=== PATIENT | female | born 1950 | race Caucasian/White ===

== ENCOUNTER → 2020-05-02 | Outpatient (CLI) | payer OTHER, MEDICAID ==
[~2020-05-02] VITALS: Ht 165.1 cm; Wt 104.3 kg
[~2020-05-02] MED LIST: ATEN-60; ATOR20TA50 PO; BUSP5TAB22; ESTR0.1C5 VA; FLUO-125 PO; GABA-339 PO; HYDR-531 PO; IBU600T; LEVO25TA6 PO; LEVO50CA2; LISI-646 PO; LISI40TA11; LITH300T; LOPE2CAP PO; METF-370 PO; METR500T PO; NIFE1TAB31 PO; OME20GT; OMEP20TA PO; OXYB5TAB24; OXYB5TAB61 PO; PROZAC; QUET100T46 PO; TRAM50TA2 PO; [UNRECOGNIZED DRUG - CODE]
== END | disposition home or self-care (01) ==
LOC: SUR 08:48 → EDSTATUS 05-08 12:15
PROVIDERS: ATTEND Urology
DX: Z01.818 Encounter for other preprocedural examination (principal); N39.46 Mixed incontinence; E11.9 Type 2 diabetes mellitus without complications; F41.9 Anxiety disorder, unspecified; F32.9 Major depressive disorder, single episode, unspecified; Z88.2 Allergy status to sulfonamides; Z79.899 Other long term (current) drug therapy; Z20.828 Contact with and (suspected) exposure to other viral communicable diseases; Z98.890 Other specified postprocedural states; Z90.49 Acquired absence of other specified parts of digestive tract; Z68.38 Body mass index [BMI] 38.0-38.9, adult; Z90.710 Acquired absence of both cervix and uterus

== ENCOUNTER → 2020-11-20 | Day surgery (SDC) | payer OTHER, MEDICAID ==
[~2020-11-20] VITALS: Ht 165.1 cm; Wt 99.8 kg
[~2020-11-20] MED LIST changes: -ATEN-60; -BUSP5TAB22; +FAMO-12 PO; -IBU600T; -LEVO50CA2; -LISI-646 PO; -LISI40TA11; -LITH300T; +LOSA-69 PO; -METR500T PO; -OME20GT; -OMEP20TA PO; +ONABOTULINUMTOXINA 200 UNIT INJ IJ ONE; -OXYB5TAB24; +PANT40TA2 PO; -PROZAC; -[UNRECOGNIZED DRUG - CODE]
== END | disposition home or self-care (01) ==
LOC: SUR 08:57
PROVIDERS: ATTEND Urology
DX: N39.46 Mixed incontinence (principal); E66.9 Obesity, unspecified; E11.9 Type 2 diabetes mellitus without complications; F31.89 Other bipolar disorder; F41.9 Anxiety disorder, unspecified; F99 Mental disorder, not otherwise specified; Z98.890 Other specified postprocedural states; Z79.899 Other long term (current) drug therapy; Z20.822 Contact with and (suspected) exposure to COVID-19; Z68.36 Body mass index [BMI] 36.0-36.9, adult; Z90.710 Acquired absence of both cervix and uterus; Z90.49 Acquired absence of other specified parts of digestive tract
CPT/HCPCS: 36415; U0003

== ENCOUNTER 2021-02-19 11:03 | Emergency (ER) | payer OTHER, MEDICAID ==
[~2021-02-19] VITALS: Ht 165.1 cm; Wt 97.5 kg
[~2021-02-19 11:03] MED LIST changes: -ESTR0.1C5 VA; -FAMO-12 PO; +FLUT110A IN; -HYDR-531 PO; +OMEP20TA PO; -ONABOTULINUMTOXINA 200 UNIT INJ IJ ONE; -PANT40TA2 PO; -TRAM50TA2 PO; +[UNRECOGNIZED DRUG - CODE] PO
[2021-02-19] MEDS ORDERED: HYDROmorphone HCL 2 MG/ML VL IV ONE (11:15)
[2021-02-19] MEDS ORDERED: ONDANSETRON HCL 4 MG/2 ML VIAL IV ONE (11:15)
[2021-02-19] MEDS ORDERED: SODIUM CHLORIDE 0.9% 500 ML IV ONE (11:15)
[2021-02-19 11:31] LABS: Basophils # (auto) 0.1 10 ^3/uL (0-0.2); Basophils % (auto) 0.9 % (0.0-2.0); Eosinophils # (auto) 0.2 10 ^3/uL (0-0.8); Eosinophils % (auto) 2.5 % (0.0-7.0); Hematocrit 36.7 % (36.0-46.0); Hemoglobin 11.8 g/dL (12.2-16.2); Lymphocytes # (auto) 2.3 10 ^3/uL (0.4-5.4); Lymphocytes % (auto) 30.1 % (10.0-50.0); Mean Corpuscular Hgb Conc. 32.2 g/dL (32.0-36.0); Mean Corpuscular Volume 83.8 fL (80.0-100.0); Monocytes # (auto) 0.6 10 ^3/uL (0-1.3); Monocytes % (auto) 8.2 % (0.0-12.0); Neutrophils # (auto) 4.5 10 ^3/uL (1.6-8.6); Neutrophils % (auto) 58.3 % (37.0-80.0); Red Blood Cells 4.38 10^6/uL (4.0-5.20); White Blood Cell 7.7 10^3/uL (4.4-10.8)
[2021-02-19 11:52] LABS: Chloride 112 mmol/L (98-107); Potassium 4.3 mmol/L (3.5-5.1); Sodium 141 mmol/L (136-145)
[2021-02-19 12:16] LABS: Alanine Aminotransferase 28 U/L (13-56); Albumin 3.8 g/dL (3.4-5.0); Alkaline Phosphatase 111 U/L (45-117); Anion Gap 4 (5-15); Aspartate Aminotransferase 19 U/L (15-37); BUN/Creatinine Ratio 13.1; Bilirubin, Total 0.6 mg/dL (0.2-1.0); Blood Urea Nitrogen 13 mg/dL (7-18); Carbon Dioxide 25 mmol/L (21-32); GFR African American 72 mL/min; GFR Non-African American 59 mL/min; Glucose 104 mg/dL (74-106); Magnesium 2.1 mg/dL (1.6-2.6); Total Protein 7.7 g/dL (6.4-8.2)
[2021-02-19 12:32] VITALS: BP 126/75
[2021-02-19 15:01] LABS: Urine Bacteria MANY /hpf (None Seen); Urine Blood Negative /uL (Negative); Urine Specific Gravity 1.015 (1.001-1.035); Urine WBC 15 /hpf (0 - 5)
== END 2021-02-19 15:25 | disposition home or self-care (01) ==
LOC: ER 11:03
DX: R53.1 Weakness (principal); I11.0 Hypertensive heart disease with heart failure; I50.9 Heart failure, unspecified; E78.5 Hyperlipidemia, unspecified; Z90.49 Acquired absence of other specified parts of digestive tract; Z90.710 Acquired absence of both cervix and uterus; Z79.899 Other long term (current) drug therapy; Z85.528 Personal history of other malignant neoplasm of kidney
CPT/HCPCS: 36415; 80053; 81001; 83735; 83880; 84484; 85025; 93005; 96360

== ENCOUNTER 2023-02-17 07:23 | Day surgery (SDC) | payer OTHER ==
[~2023-02-17] VITALS: Ht 165.1 cm; Wt 104.3 kg
[~2023-02-17 07:23] MED LIST changes: -LOSA-69 PO; +LOSA50TA46 PO; +OXYB5TAB10 PO; -OXYB5TAB61 PO; -QUET100T46 PO; +QUET100T47 PO
[2023-02-17] MEDS ORDERED: CIPROFLOXACIN 400MG/200ML 200 ML IV ONE (07:31)
[2023-02-17] MEDS ORDERED: ONABOTULINUMTOXINA 200 UNIT INJ IM ONE (08:45)
[2023-02-17] MEDS ORDERED: fentaNYL CITRATE 100 MCG/2 ML VL ONE (09:40)
[2023-02-17] MEDS ORDERED: MIDAZOLAM HCL 2MG/2ML 2ml VIAL (1mg/ml) ONE (09:40)
[2023-02-17] MEDS ORDERED: PROPOFOL 10 MG/ML 20 ML IV ONE (10:13)
[2023-02-17] MEDS ORDERED: ONDANSETRON HCL 4 MG/2 ML VIAL ONE (10:14)
[2023-02-17] MEDS ORDERED: LIDOCAINE 2% (LOCAL ANESTH.) PF 5ml SDV ONE (10:14)
[2023-02-17 10:25] VITALS: TEMP 97.4; O2SAT 95
[2023-02-17] MEDS ORDERED: SUCCINYLCHOLINE CHLORIDE 20 MG/ML 10ML VIAL IV ONE (10:56)
[2023-02-17] MEDS ORDERED: ONDANSETRON HCL 4 MG/2 ML VIAL IV PRN (11:00)
[2023-02-17] MEDS ORDERED: HYDROmorphone HCL 2 MG/ML VL/or syr IV PRN (11:00)
[2023-02-17 11:40] VITALS: BP 151/84; PULSE 95; RESP 14; O2SAT 93
== END 2023-02-17 11:42 | disposition home or self-care (01) ==
LOC: SUR 07:23
PROVIDERS: ATTEND Urology
DX: N32.81 Overactive bladder (principal); I12.9 Hypertensive chronic kidney disease with stage 1 through stage 4 chronic kidney disease, or unspecified chronic kidney disease; N18.9 Chronic kidney disease, unspecified; K21.9 Gastro-esophageal reflux disease without esophagitis
CPT/HCPCS: 52287; 82962; C1769; J0330; J0585; J0744; J2001; J2250; J2405; J2704; J3010; J7030

== ENCOUNTER 2023-04-18 15:20 | Emergency (ER) | payer OTHER ==
[~2023-04-18] VITALS: Ht 165.1 cm; Wt 104.0 kg
[2023-04-18 17:06] LABS: Basophils # (auto) 0 10 ^3/uL (0-0.2); Basophils % (auto) 0.7 % (0.0-2.0); Eosinophils # (auto) 0.3 10 ^3/uL (0-0.8); Eosinophils % (auto) 4.5 % (0.0-7.0); Hematocrit 30.4 % (36.0-46.0); Hemoglobin 9.2 g/dL (12.2-16.2); Lymphocytes # (auto) 1.4 10 ^3/uL (0.4-5.4); Lymphocytes % (auto) 22.8 % (10.0-50.0); Mean Corpuscular Hemoglobin 23.6 pg (28.0-32.0); Mean Corpuscular Hgb Conc. 30.2 g/dL (32.0-36.0); Mean Corpuscular Volume 78.1 fL (80.0-100.0); Monocytes # (auto) 0.6 10 ^3/uL (0-1.3); Monocytes % (auto) 8.9 % (0.0-12.0); Neutrophils % (auto) 63.1 % (37.0-80.0); Red Blood Cells 3.89 10^6/uL (4.0-5.20); Red Cell Distribution Width 19.3 % (11.8-14.3); White Blood Cell 6.4 10^3/uL (4.4-10.8)
[2023-04-18 17:24] LABS: Alanine Aminotransferase 22 U/L (7-40); Albumin 4.2 g/dL (3.2-4.8); Alkaline Phosphatase 116 U/L (46-116); Anion Gap 7.7 (5-15); Aspartate Aminotransferase 27 U/L (13-40); BUN/Creatinine Ratio 15.7 (10.0-20.0); Bilirubin, Total 0.3 mg/dL (0.2-1.0); Blood Urea Nitrogen 16 mg/dL (9-23); Calcium 9.2 mg/dL (8.5-10.1); Carbon Dioxide 23.3 mmol/L (20-30); Chloride 108 mmol/L (98-107); Glucose 119 mg/dL (74-106); Lactic Acid w/Reflex 2.3 mmol/L (0.4-2.0); Magnesium 1.7 mg/dL (1.6-2.6); Potassium 4.7 mmol/L (3.5-5.1); Sodium 139 mmol/L (136-145); Total Protein 6.9 g/dL (5.7-8.2)
[2023-04-18 21:43] VITALS: BP 147/77; TEMP 98.9
[2023-04-18] MEDS ORDERED: HYDROcodone-ACET 10/325MG TAB PO ONE (22:45)
[2023-04-18 22:58] VITALS: PULSE 67; RESP 16; O2SAT 97
== END 2023-04-18 22:55 | disposition home or self-care (01) ==
LOC: ER 15:20
DX: R91.8 Other nonspecific abnormal finding of lung field (principal); R74.02 Elevation of levels of lactic acid dehydrogenase [LDH]; J44.9 Chronic obstructive pulmonary disease, unspecified; I13.0 Hypertensive heart and chronic kidney disease with heart failure and stage 1 through stage 4 chronic kidney disease, or unspecified chronic kidney disease; N18.9 Chronic kidney disease, unspecified; I50.9 Heart failure, unspecified; E78.5 Hyperlipidemia, unspecified; F12.10 Cannabis abuse, uncomplicated; R10.2 Pelvic and perineal pain; Z90.49 Acquired absence of other specified parts of digestive tract; Z90.710 Acquired absence of both cervix and uterus
CPT/HCPCS: 36415; 71045; 80053; 82962; 83605; 83735; 83880; 84484; 85025; 85379; 87040; 93005; 93970

== ENCOUNTER 2024-04-19 10:00 | Emergency (ER) | payer OTHER ==
[~2024-04-19] VITALS: Ht 165.1 cm; Wt 98.8 kg
[~2024-04-19 10:00] MED LIST changes: +LOSA-534 PO; -LOSA50TA46 PO; -OXYB5TAB10 PO; +OXYB5TAB14 PO
[2024-04-19 11:09] VITALS: TEMP 97.4; O2SAT 96
[2024-04-19] MEDS: ONDANSETRON ODT 4 MG TAB PO ONE (11:24)
[2024-04-19] MEDS: MEPERIDINE HCL (50 MG/ML) 1 ML VIAL IM ONE (11:31)
[2024-04-19 12:10] VITALS: BP 100/61; PULSE 70; RESP 16
== END 2024-04-19 12:24 | disposition home or self-care (01) ==
LOC: ER 10:00
DX: G89.29 Other chronic pain (principal); M54.50 Low back pain, unspecified; I13.0 Hypertensive heart and chronic kidney disease with heart failure and stage 1 through stage 4 chronic kidney disease, or unspecified chronic kidney disease; N18.9 Chronic kidney disease, unspecified; I50.9 Heart failure, unspecified; J44.9 Chronic obstructive pulmonary disease, unspecified; E78.5 Hyperlipidemia, unspecified; F41.9 Anxiety disorder, unspecified; F32.9 Major depressive disorder, single episode, unspecified; F15.90 Other stimulant use, unspecified, uncomplicated; Z85.9 Personal history of malignant neoplasm, unspecified; Z98.890 Other specified postprocedural states; Z90.710 Acquired absence of both cervix and uterus; Z79.899 Other long term (current) drug therapy
CPT/HCPCS: 96372; 99283; J2175; Q0162

== ENCOUNTER 2024-06-16 13:50 | Inpatient (IN) | payer OTHER ==
[~2024-06-16] VITALS: Ht 165.1 cm; Wt 96.0 kg
[2024-06-16 16:09] LABS: Basophils # (auto) 0.1 10 ^3/uL (0-0.2); Basophils % (auto) 0.4 % (0.0-2.0); Eosinophils # (auto) 0.1 10 ^3/uL (0-0.8); Lymphocytes # (auto) 1.5 10 ^3/uL (0.4-5.4); Lymphocytes % (auto) 8.1 % (10.0-50.0); Monocytes # (auto) 0.8 10 ^3/uL (0-1.3); White Blood Cell 18.9 10^3/uL (4.4-10.8)
[2024-06-16 16:11] LABS: Eosinophils % (auto) 0.7 % (0.0-7.0); Hematocrit 35.2 % (36.0-46.0); Hemoglobin 11.3 g/dL (12.2-16.2); Mean Corpuscular Hemoglobin 25.8 pg (28.0-32.0); Mean Corpuscular Hgb Conc. 32.1 g/dL (32.0-36.0); Mean Corpuscular Volume 80.4 fL (80.0-100.0); Monocytes % (auto) 4.5 % (0.0-12.0); Neutrophils # (auto) 16.3 10 ^3/uL (1.6-8.6); Neutrophils % (auto) 86.3 % (37.0-80.0); Platelet Count (auto) 248 10^3/uL (140-450); Red Blood Cells 4.37 10^6/uL (4.0-5.20)
[2024-06-16] MEDS: SODIUM CHLORIDE 0.9% 500 ML IVB ONE (16:14)
[2024-06-16] MEDS: ONDANSETRON HCL 4 MG/2 ML VIAL IV ONE (16:17)
[2024-06-16] MEDS: MORPHINE SULFATE 4 MG/ML SYR/VIAL IV ONE (16:19)
[2024-06-16 16:24] LABS: Alanine Aminotransferase 13 U/L (7-40); Albumin 4.2 g/dL (3.2-4.8); Alkaline Phosphatase 106 U/L (46-116); Anion Gap 7 (5-15); Aspartate Aminotransferase 14 U/L (13-40); BUN/Creatinine Ratio 12.6 (10.0-20.0); Blood Urea Nitrogen 14 mg/dL (9-23); Calcium 10.1 mg/dL (8.7-10.4); Carbon Dioxide 26 mmol/L (20-31); Chloride 106 mmol/L (98-107); Glucose 110 mg/dL (74-106); Potassium 3.7 mmol/L (3.5-5.1); Sodium 139 mmol/L (136-145)
[2024-06-16 16:25] LABS: Bilirubin, Total 1.1 mg/dL (0.2-1.0); Total Protein 7.4 g/dL (5.7-8.2)
--- NOTE | 2024-06-16 16:33 | ED.PDOC ---
History of Present Illness HPI Comments 74Y F with PMHx DM, HTN, HLD, COPD, CA, thyroid, CHF, CKA, PE, depression, anxiety, schizophrenia, cholecystectomy, hysterectomy, and presents to ED via EMS for chief complaint n/v. Pt is currently on Ozempic and dosage was recently increased to 2mg weekly. Pt took last dose on Tuesday06/12/2024. Pt had one emesis episode yesterday. Nausea medication (Zofran) was given to her by different provider but has not provided relief. Pt denies abd pain. Pt also has chronic lt sided sciatica pain and has been given 2 injections in the past without relief. Pt was recently switched to new pain management provider but has not established care, first appt is in the next month. Pt brought all her medications with her but states she stopped taking Gabapentin since it is "bad for her kidneys". Pt had a fall in the last month where she bumped her head. No LOC. No known allergies. Denies any fecal or urinary incontinence. States she has a history of stress incontinence at baseline. Chief Complaint: Nausea/Vomiting Time Seen by MD: 15:52 Primary Care Provider: BIBI Reviewed Notes: Medications, Allergies Allergies: Coded Allergies: NO KNOWN ALLERGIES (Unverified , 11/03/20) Home Meds Reported Medications Omeprazole (Gnp Omeprazole) 20 Mg Tab, 40 MG PO, TAB 02/18/21 Multiple Vitamins W/ Minerals (ALIVE WOMENS 50+) Womens Tab, 1 TAB PO, TAB 02/18/21 Fluticasone Propionate (FLOVENT HFA 110Mcg INH) 110 Mcg Ih, 50 MCG IN BID, INH 02/18/21 Losartan Potassium (Losartan Potassium) 50 Mg Tab, 50 MG PO DAILY for 30 Days, MG 11/03/20 Loperamide Hcl (Loperamide Hcl) 2 Mg Cap, 2 MG PO PRN, MG 05/02/20 Gabapentin (Gabapentin) 600 Mg Tab, 600 MG PO BID for 30 Days, MG 05/02/20 Nifedipine (Nifedipine Er) 30 Mg Tab, 1 TAB PO DAILY, #90 TAB 1 Refill 05/02/20 Atorvastatin Calcium (ATORVASTATIN CALCIUM) 20 Mg Tab, 1 TAB PO DAILY, #30 TAB 5 Refills 05/02/20 Oxybutynin Chloride (Oxybutynin Chloride) 5 Mg Tab, 5 MG PO DAILY, TAB 05/02/20 Levothyroxine Sodium (Levothyroxine Sodium) 25 Mcg Tab, 25 MCG PO QAM, MCG 05/02/20 Fluoxetine Hcl (Fluoxetine Hcl) 20 Mg Cap, 60 MG PO DAILY for 30 Days, MG 05/02/20 Quetiapine Fumerate (QUETIAPINE FUMARATE) 100 Mg Tab, 100 MG PO HS for 30 Days, MG 05/02/20 Metformin Hydrochloride (Metformin Hcl) 500 Mg Tab, 500 MG PO DAILY for 30 Days, MG 05/02/20 Information Source: Patient Mode of Arrival: EMS Severity: Moderate Timing: Days Duration: Since onset Prehospital treatment: None Past Medical History PAST MEDICAL HISTORY: Anxiety, Cancer, CHF, CKF, COPD, Depression, High Lipids, HTN, Schizophrenia, Thyroid Surgical History: Cholecystectomy, , Hysterectomy [employer]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 Family History Family History: Reviewed,noncontributory to illness, Family hx of heart joey Social History Smoker: Non-Smoker Alcohol: Rarely Drugs: Marijuana Lives In: Home Constitutional: denies: chills, diaphoresis, fatigue, fever, malaise, sweats, weakness, others EENTM: denies: blurred vision, double vision, ear bleeding, ear discharge, ear drainage, ear pain, ear ringing, eye pain, eye redness, hearing loss, mouth pain, mouth swelling, nasal discharge, nose bleeding, nose congestion, nose pain, photophobia, tearing, throat pain, throat swelling, voice changes, others Respiratory: denies: cough, hemoptysis, orthopnea, SOB at rest, shortness of breath, SOB with excertion, stridor, wheezing, others Cardiovascular: denies: chest pain, dizzy spells, diaphoresis, Dyspnea on exertion, edema, irregular heart beat, left arm pain, lightheadedness, palpitations, PND, syncope, others Gastrointestinal: reports: nausea, poor appetite, vomiting; denies: abdomen distended, abdominal pain, blood streaked bowels, constipated, diarrhea, dysphagia, difficulty swallowing, hematemesis, melena, poor fluid intake, rectal bleeding, rectal pain, others Genitourinary: denies: abnormal vagina bleeding, burning, dyspareunia, dysuria, flank pain, frequency, hematuria, incontinence, pain, , vagina discharge, urgency, others Neurological: denies: dizziness, fainting, headache, left sided numbness, left sided weakness, numbness, paresthesia, pre-existing deficit, right sided numbness, right sided weakness, seizure, speech problems, tingling, tremors, weakness, others Musculoskeletal: reports: joint pain, muscle pain; denies: back pain, gout, joint swelling, muscle stiffness, neck pain, others Integumetry: denies: bruises, change in color, change in hair/nails, dryness, laceration, lesions, lumps, rash, wounds, others Allergic/Immunocompromised: denies: Difficulty Healing, Frequent Infections, Hives, Itching, others Hematologic/Lymphatic: denies: anemia, blood clots, easy bleeding, easy bruising, swollen glands, others Endocrine: denies: excessive hunger, excessive sweating, excessive thirst, excessive urination, flushing, intolerance to cold, intolerance to heat, une xplained weight gain, unexplained weight loss, others Psychiatric: denies: anxiety, bipolar disorder, depression, hopeless, panic disorder, schizophrenia, sleepless, suicidal, others All Other Systems: Reviewed and Negative Physical Exam Exam Comments Patient sitting with legs extended but is able to walk to the bathroom. General Appearance: No Apparent Distress, Normal HEENT: Normal ENT Inspection, Pharynx Normal, TMs Normal Neck: Full Range of Motion, Non-Tender, Normal, Normal Inspection Respiratory: Chest Non-Tender, Lungs Clear, No Accessory Muscle Use, No Respiratory Distress, Normal Breath Sounds Cardiovascular: No Edema, No JVD, No Murmur, No Gallop, Normal Peripheral Pulses, Regular Rate/Rhythm Breast Exam: Deferred Gastrointestinal: No Organomegaly, Non Tender, No Pulsatile Mass, Normal Bowel Sounds, Soft Genitalia: Deferred Pelvic: Deferred Rectal: Deferred Extremities: No calf tenderness, Normal capillary refill, Normal inspection, Normal range of motion, Non-tender, No pedal edema Musculoskeletal : Location: Left Extremity Location: Leg Apperance: Limited ROM (pt has leg extended) Neurologic: Alert, board catcher II-XII nml as Tested, No Motor Deficits, Normal Affect, Normal Mood, No Sensory Deficits Cerebellar Function: Normal Reflexes: Normal Skin: Dry, Normal Color, Warm Lymphatic: No Adenopathy Was a procedure done? Was a procedure done?: No Differential Dx Considerations may include: Sciatica, cauda equina syndrome, epidural abscess, UTI, small-bowel obstruction, diverticulitis X-Ray, Labs, Meds, VS Vital Signs Date Time Temp Pulse Resp B/P (MAP) Pulse Ox O2 Delivery O2 Flow Rate FiO2 06/16/24 17:32 79 18 141/64 06/16/24 16:28 98.9 103 18 141/87 (105) 94 98.9 06/16/24 16:28 103 18 94 Nasal Cannula 2.0 06/16/24 16:19 102 17 141/87 Lab Test 06/16/24 16:40 06/16/24 15:59 Range/Units Troponin I High Sensitivity 4 4 </=34 ng/L White Blood Count 18.9 H 4.4-10.8 10^3/uL Red Blood Count 4.37 4.0-5.20 10^6/uL Hemoglobin 11.3 L 12.2-16.2 g/dL Hematocrit 35.2 L 36.0-46.0 % Mean Corpuscular Volume 80.4 80.0-100.0 fL Mean Corpuscular Hemoglobin 25.8 L 28.0-32.0 pg Mean Corpuscular Hemoglobin Concent 32.1 32.0-36.0 g/dL Red Cell Distribution Width 16.0 H 11.8-14.3 % Platelet Count 248 140-450 10^3/uL Mean Platelet Volume 9.5 6.9-10.8 fL Neutrophils (%) (Auto) 86.3 H 37.0-80.0 % Lymphocytes (%) (Auto) 8.1 L 10.0-50.0 % Monocytes (%) (Auto) 4.5 0.0-12.0 % Eosinophils (%) (Auto) 0.7 0.0-7.0 % Basophils (%) (Auto) 0.4 0.0-2.0 % Neutrophils # (Auto) 16.3 H 1.6-8.6 10 ^3/uL Lymphocytes # (Auto) 1.5 0.4-5.4 10 ^3/uL Monocytes # (Auto) 0.8 0-1.3 10 ^3/uL Eosinophils # (Auto) 0.1 0-0.8 10 ^3/uL Basophils # (Auto) 0.1 0-0.2 10 ^3/uL Nucleated Red Blood Cells 0.0 % Sodium Level 139 136-145 mmol/L Potassium Level 3.7 3.5-5.1 mmol/L Chloride Level 106 98-107 mmol/L Carbon Dioxide Level 26 20-31 mmol/L Anion Gap 7 5-15 Blood Urea Nitrogen 14 9-23 mg/dL Creatinine 1.11 H 0.550-1.02 mg/dL Glomerular Filtration Rate Calc 53 >90 mL/min BUN/Creatinine Ratio 12.6 10.0-20.0 Serum Glucose 110 H 74-106 mg/dL Calcium Level 10.1 8.7-10.4 mg/dL Total Bilirubin 1.1 H 0.2-1.0 mg/dL Aspartate Amino Transferase (AST) 14 13-40 U/L Alanine Aminotransferase (ALT) 13 7-40 U/L Alkaline Phosphatase 106 46-116 U/L Total Protein 7.4 5.7-8.2 g/dL Albumin 4.2 3.2-4.8 g/dL Lipase 24 12-53 U/L Current Medications Medications (Trade) Dose Ordered Sig/Shala Route Start Time Stop Time Status Last Admin Ondansetron HCl (Zofran) 4 mg ONCE ONCE IV 06/16/24 16:00 06/16/24 16:01 DC 06/16/24 16:17 Sodium Chloride 500 ml @ 500 mls/hr Q1H ONCE IVB 06/16/24 16:00 06/16/24 16:59 DC 06/16/24 16:14 Morphine Sulfate 4 mg ONCE ONCE IV 06/16/24 16:15 06/16/24 16:16 DC 06/16/24 16:19 [place] [address] Ph: [phone] DIAGNOSTIC IMAGING Diagnostic Imaging Report : [id number] Signed PATIENT: ANDREA GALVAN ACCT: [id number] UNIT: [id number] : 1950 LOC: ER ROOM / BED: / AGE / SEX: 74 / F ADM STATUS: REG ER SERVICE 1646 ORDERING PHYSICIAN: CIRILO DUQUE MD PROCEDURE(s): ABPL - CT AB PEL WO CON-NO ORAL OR IV REASON: nausea with elevated wbc count ORDER NUMBER(s): [id number], ACCESSION NUMBER(s): [id number] Exam: CT CT AB PEL WO CON-NO ORAL OR IV History: nausea with elevated wbc count Comparison Study: None available at time of dictation. TECHNIQUE: Multidetector CT of the abdomen was performed from lung bases to pubic symphysis. Imaging was performed without IV contrast. Axial, coronal and sagittal multiplanar reformats were obtained from the axial data set by the technologist. Radiation Dose Information: CT Dose: CTDI volume is 19.53 mGy. Dose-length product is 937.95 mGy*cm FINDINGS: Evaluation of solid organs is limited due to lack of intravenous contrast use. Findings: Lung Bases: Bibasilar areas of pulmonary fibrosis and bronchiectasis. Normal heart size. No pleural or pericardial effusion. Liver: The liver is normal in size. No focal lesions. Gallbladder and Biliary Tree: Gallbladder is been surgically removed. Spleen: Unremarkable Pancreas: The pancreas is grossly normal in appearance. Adrenal Glands: Unremarkable Kidneys: Punctate nonobstructing calculus left kidney. Small cortical hypodense lesions bilaterally consistent with renal cysts. They do not measure greater than 1 cm in size. Bladder: Grossly unremarkable for degree of distention. Bowel: The stomach is grossly normal in appearance. Small bowel and colon are normal in caliber and distribution. The appendix is not visualized; however, no secondary findings of acute appendicitis identified. Ascites: Absent Lymphadenopathy: No mesenteric, retroperitoneal or periportal lymphadenopathy. Abdominal Wall and Mesentery: Unremarkable. Vasculature: The visualized abdominal aorta is normal in size and caliber. Evaluation of abdominal and pelvic vessels is limited due to lack of intravenous contrast. Pelvic Organs: Unremarkable Musculoskeletal: No aggressive focal bony lesions, acute fractures or dislocation. Bony spondylosis and degenerative disc changes worse at L3-4 5 L5- S1. Llbw-od-[id number] spinal stenosis is noted at L4-5 Soft tissues: Unremarkable IMPRESSION: 1. Gallbladder is been surgically removed. 2. Punctate nonobstructing left renal calculus 3. Small bilateral renal cysts 4. Bony spondylosis and degenerative disc changes from L3 through S1. Radiation optimization: All CT scans at this facility use at least one of these dose optimization techniques: automated exposure control mA and/or kV ad justment per patient size (includes targeted exams where dose is matched to clinical indication) or iterative reconstruction. HS:Y ATED BY: GABBY ARECHIGA Jr., DO DICTATED DATE/TIME: 06/16/241740 SIGNED BY: GABBY ARECHIGA Jr., SIGNED DATE/TIME: 06/16/241740 CC: 74-year-old female presents here with nausea and left leg pain due to sciatica. At this time blood work has been done which demonstrates a leukocytosis of 18.9 of unclear etiology. I considered possible epidural abscess however she does not report back pain reports leg pain. Patient is able to ambulate to the bathroom in the ER. Urine is still pending. CT abdomen pelvis has been done with no evidence of acute infection. At this time however given her age and unknown leukocytosis, with nausea, I have spoken Dr. Valle for admission. Patient has empirically been started on Rocephin IV. Time of 1ST Reevaluation: 16:22 Reevaluation 1ST: Unchanged Patient Education/Counseling: Diagnosis, Treatment Family Education/Counseling: No Family Present Departure 1 Departure Time of Disposition: 17:30 Impression: Primary Impression: Leukocytosis Qualified Codes: D72.829 - Elevated white blood cell count, unspecified Additional Impression: Nausea Disposition: ADMITTED INPATIENT Admit to: Tele Condition: Serious Critical Care Note Critical Care Time?: No Stability Stability form required: No Heart Score Heart Score: Heart Score Response (Comments) Value History N/A 0 EKG N/A 0 Age N/A 0 Risk Factors N/A 0 Troponin N/A 0 Total 0 I personally scribed for CIRILO DUQUE MD ([email or web address]) on 06/16/24 at 16:33. Electronically submitted by Piper Chavez ([email or web address]). I personally scribed for CIRILO DUQUE MD ([email or web address]) on 06/16/24 at 18:05. Electronically submitted by Piper Chavez ([email or web address]). CIRILO DUQUE MD Jun 16, 2024 16:33
[2024-06-16 16:41] LABS: Lipase 24 U/L (12-53)
--- NOTE | 2024-06-16 17:44 | DVH ---
Exam: CT CT AB PEL WO CON-NO ORAL OR IV History: nausea with elevated wbc count Comparison Study: None available at time of dictation. TECHNIQUE: Multidetector CT of the abdomen was performed from lung bases to pubic symphysis. Imaging was performed without IV contrast. Axial, coronal and sagittal multiplanar reformats were obtained fr om the axial data set by the technologist. Radiation Dose Information: CT Dose: CTDI volume is 19.53 mGy. Dose-length product is 937.95 mGy*cm FINDINGS: Evaluation of solid organs is limited due to lack of intravenous contrast use. Findings: Lung Bases: Bibasilar areas of pulmonary fibrosis and bronchiectasis. Normal heart size. No pleural or pericardial effusion. Liver: The liver is normal in size. No focal lesions. Gallbladder and Biliary Tree: Gallbladder is been surgically removed. Spleen: Unremarkable Pancreas: The pancreas is grossly normal in appearance. Adrenal Glands: Unremarkable Kidneys: Punctate nonobstructing calculus left kidney. Small cortical hypodense lesions bilaterally c onsistent with renal cysts. They do not measure greater than 1 cm in size. Bladder: Grossly unremarkable for degree of distention. Bowel: The stomach is grossly normal in appearance. Small bowel and colon are normal in caliber and d istribution. The appendix is not visualized; however, no secondary findings of acute appendicitis id entified. Ascites: Absent Lymphadenopathy: No mesenteric, retroperitoneal or periportal lymphadenopathy. Abdominal Wall and Mesentery: Unremarkable. Vasculature: The visualized abdominal aorta is normal in size and caliber. Evaluation of abdominal a nd pelvic vessels is limited due to lack of intravenous contrast. Pelvic Organs: Unremarkable Musculoskeletal: No aggressive focal bony lesions, acute fractures or dislocation. Bony spondylosis a nd degenerative disc changes worse at L3-4 5 L5-S1. Dndn-wn-myhwqhyb spinal stenosis is noted at L4-5 Soft tissues: Unremarkable IMPRESSION: 1. Gallbladder is been surgically removed. 2. Punctate nonobstructing left renal calculus 3. Small bilateral renal cysts 4. Bony spondylosis and degenerative disc changes from L3 through S1. Radiation optimization: All CT scans at this facility use at least one of these dose optimization mac hniques: automated exposure control mA and/or kV adjustment per patient size (includes targeted exam s where dose is matched to clinical indication) or iterative reconstruction. HS:Y
[2024-06-16 19:38] VITALS: PULSE 105; RESP 18; O2SAT 94
[2024-06-16 19:42] LABS: Lactic Acid w/Reflex 2.1 mmol/L (0.4-2.0)
[2024-06-16] MEDS: SODIUM CHLORIDE 0.9% 2,000 ML IV ONE (19:47)
[2024-06-16] MEDS: cefTRIAXone 1GM/50ML D5W 50 ML IV ONE (19:47)
[2024-06-16 20:22] LABS: COVID19 ANTIGEN SOFIA FIA NEGATIVE (NEGATIVE); Rapid Influenza A Negative (Negative); Rapid Influenza B Negative (Negative)
[2024-06-16 21:28] LABS: Urine Bacteria None Seen /hpf (None Seen)
[2024-06-16 21:34] LABS: Urine Blood Negative /uL (Negative); Urine Clarity Clear (Clear); Urine Color Yellow (Yellow); Urine Protein, UAD TRACE (Negative); Urine Specific Gravity 1.017 (1.001-1.035); Urine Urobilinogen Normal (Negative); Urine WBC 3 /hpf (0 - 5)
[2024-06-16] MEDS ORDERED: NITROGLYCERIN 0.4 MG SL TAB SL PRN (22:30)
[2024-06-16] MEDS ORDERED: ACETAMINOPHEN 325 MG TAB PO PRN (22:30)
[2024-06-16] MEDS ORDERED: MORPHINE SULFATE INJ 2 MG/ml SYRG IV PRN (22:30)
[2024-06-16] MEDS ORDERED: DEXTROSE (50%) 50ML SYRG IV PRN (22:30)
[2024-06-16] MEDS ORDERED: DOCUSATE SOD 100 MG CAP PO PRN (22:30)
--- NOTE | 2024-06-16 22:40 | DVH ---
XY CHEST TWO VIEWS ROUTINE CLINICAL HISTORY: sob COMPARISON: None TECHNIQUE: Frontal and lateral view of the chest was obtained FINDINGS: Lines and Tubes: None Lungs: Interosseous additional infiltrates perihilar region bilaterally right upper lobe. Also seen i n the left lower lobe. Findings appear worse 04/18/2023 these findings could also be progression of c hronic pulmonary disease Pleura: No effusion. No pneumothorax. Cardiomediastinal contours: Unremarkable Bones: No acute osseous abnormality. IMPRESSION: 1. .Bilateral perihilar infiltrates with interstitial fully infiltrate in the right upper lobe and le ft lower lobe. HS:Y
[2024-06-17] VITALS (10 sets, daily range): BP systolic 105–154; BP diastolic 59–97; PULSE 77–90; RESP 17–20; TEMP 97.8–98.9; O2SAT 92–97
[2024-06-17] MEDS: HYDROcodone-ACET 5/325MG TAB PO PRN (01:02)
--- NOTE | 2024-06-17 02:47 | DVHHP2 ---
CHERYL GILLILAND ASSEMBLIES AND INSTALLATIONS INSPECTOR 06/17/24 0247: History of Present Illness Reason for Visit: Nausea/vomiting History of Present Illness 74 year-old female with past medical history of CHF, DM, hypertension, hyperlipidemia, cancer, PE, Depression, anxiety, schizophrenia, chronic pain disorder Presents with complaints of nausea vomiting x1 day. Patient also endorses chronic Left lower extremity sciatic nerve pain, Being seen by pain management outpatient. Patient denies consistent use of home oxygen. However while in the emergency department is found to Require supplemental O2 2LNC to maintain oxygen saturation in 94%. Well in the emergency department CBC: W18.9, Otherwise unremarkable. Chest x-ray positive for bilateral infiltrates. There are no complaints of fevers, chills, Cough, congestion, Chest pain,Dizziness, palpitations. Cardiovascular: CHF, HTN, hyperipidemia Pulmonary: Pulmonary embolus Heme/Onc: Cancer Psych: Anxiety, Depression, Schizophrenia Smoke: No ALCOHOL: none Drugs: None Lives: with Family Review of Systems Constitutional: No: Fever, Chills, Sweats, Weakness, Malaise, Other Eyes: No: Pain, Vision change, Conjunctivae inflammation, Eyelid inflammation, Other, Redness ENT: No: Ear pain, Ear discharge, Nose pain, Nose discharge, Nose congestion, Mouth pain, Mouth swelling, Throat pain, Throat swelling, Other Respiratory: No: Cough, Dry, Shortness of breath, SOB with excertion, Wheezing, Hemoptysis, Pleuritic Pain, Sputum, Wheezing, Other Cardiovascular: No: Chest Pain, Palpitations, Orthopnea, Paroxysmal Noc. Dyspnea, Edema, Lt Headedness, Other Gastrointestinal: Nausea, Vomiting; No: Abdominal Pain, Diarrhea, Constipation, Melena, Hematochezia, Other Genitourinary: No Dysuria, No Frequency, No Incontinence, No Hematuria, No Retention, No Other Musculoskeletal: leg pain; No: other, neck pain, shoulder pain, arm pain, back pain, hand pain, foot pain Skin: No: Rash, Lesions, Jaundice, Bruising, Other Neurological: No: Weakness, Numbness, Incoordination, Change in speech, Confusion, Seizures, Other Allergies: Coded Allergies: NO KNOWN ALLERGIES (Unverified , 11/03/20) Medications Current Medications Medications Dose Ordered Sig/Shala Route Start Time Stop Time Status Last Admin Dose Admin Lorazepam 0.5 mg BIDP PRN PO 06/16/24 22:30 Docusate Sodium 100 mg BIDPRN PRN PO 06/16/24 22:30 Acetaminophen 650 mg Q6HP PRN PO 06/16/24 22:30 Acetaminophen/ Hydrocodone Bitart 1 tab Q6HP PRN PO 06/16/24 22:30 06/17/24 01:02 1 TAB Ondansetron HCl 4 mg Q4HP PRN IV 06/16/24 22:30 Morphine Sulfate 2 mg Q4HPRN PRN IV 06/16/24 22:30 Enoxaparin Sodium 40 mg DAILY SC 06/17/24 10:00 UNV Nitroglycerin 0.4 mg Q5MINP PRN SL 06/16/24 22:30 Morphine Sulfate 2 mg Q30M PRN IV 06/16/24 22:30 Diagnostic Test (Pha) 1 strip ACHS 06/17/24 07:00 Insulin Human Regular ACHS SC 06/17/24 07:00 Dextrose 50 ml UD PRN IV 06/16/24 22:30 Ceftriaxone Sodium 50 ml @ 100 mls/hr DAILY@09 IV 06/17/24 09:00 Azithromycin 250 ml @ 125 mls/hr DAILY IV 06/17/24 10:00 Exam Vital Signs Vital Signs Date Time Temp Pulse Resp B/P (MAP) Pulse Ox O2 Delivery O2 Flow Rate FiO2 06/17/24 01:11 98.4 94 18 140/54 (82) 90 98.4 06/16/24 19:38 Nasal Cannula* 3 32 General Appearance: Alert, Oriented X3, Cooperative, No acute distress HEENT: Atraumatic, PERRLA, EOMI Respiratory: Clear to auscultation, Normal air movement Cardiovascular: Regular rate, Normal S1, Normal S2 Abdominal: Normal bowel sounds, Soft, No tenderness Extremities: No clubbing, No cyanosis, No edema Skin: No rashes, No breakdown Neuro: Normal gait, Normal speech Psych/Mental Status: Mental status NL, Mood NL Labs/Xrays Labs Test 06/17/24 00:50 06/16/24 21:20 06/16/24 20:49 06/16/24 20:00 Range/Units Troponin I High Sensitivity 4 </=34 ng/L Urine Color Yellow Yellow Urine Clarity Clear Clear Urine pH 7.0 5.0-9.0 Urine Specific [place] 1.017 1.001-1.035 Urine Protein Trace H Negative Urine Ketones Trace Negative Urine Blood Negative Negative /uL Urine Nitrite Negative Negative Urine Bilirubin Negative Negative Urine Urobilinogen Normal Negative mg/dL Urine Leukocyte Esterase Negative Negative /uL Urine RBC 1 0 - 4 /hpf Urine WBC 3 0 - 5 /hpf Urine Squamous Epithelial Cells Few <5 /hpf Urine Bacteria None seen None Seen /hpf Urine Glucose Normal Normal mg/dL Lactic Acid Level 1.6 0.4-2.0 mmol/L Influenza Type A Antigen Negative Negative Influenza Type B Antigen Negative Negative SARS-CoV-2 Antigen (Rapid) Negative NEGATIVE Test 06/16/24 15:59 Range/Units White Blood Count 18.9 H 4.4-10.8 10^3/uL Red Blood Count 4.37 4.0-5.20 10^6/uL Hemoglobin 11.3 L 12.2-16.2 g/dL Hematocrit 35.2 L 36.0-46.0 % Mean Corpuscular Volume 80.4 80.0-100.0 fL Mean Corpuscular Hemoglobin 25.8 L 28.0-32.0 pg Mean Corpuscular Hemoglobin Concent 32.1 32.0-36.0 g/dL Red Cell Distribution Width 16.0 H 11.8-14.3 % Platelet Count 248 140-450 10^3/uL Mean Platelet Volume 9.5 6.9-10.8 fL Neutrophils (%) (Auto) 86.3 H 37.0-80.0 % Lymphocytes (%) (Auto) 8.1 L 10.0-50.0 % Monocytes (%) (Auto) 4.5 0.0-12.0 % Eosinophils (%) (Auto) 0.7 0.0-7.0 % Basophils (%) (Auto) 0.4 0.0-2.0 % Neutrophils # (Auto) 16.3 H 1.6-8.6 10 ^3/uL Lymphocytes # (Auto) 1.5 0.4-5.4 10 ^3/uL Monocytes # (Auto) 0.8 0-1.3 10 ^3/uL Eosinophils # (Auto) 0.1 0-0.8 10 ^3/uL Basophils # (Auto) 0.1 0-0.2 10 ^3/uL Nucleated Red Blood Cells 0.0 % Sodium Level 139 136-145 mmol/L Potassium Level 3.7 3.5-5.1 mmol/L Chloride Level 106 98-107 mmol/L Carbon Dioxide Level 26 20-31 mmol/L Anion Gap 7 5-15 Blood Urea Nitrogen 14 9-23 mg/dL Creatinine 1.11 H 0.550-1.02 mg/dL Glomerular Filtration Rate Calc 53 >90 mL/min BUN/Creatinine Ratio 12.6 10.0-20.0 Serum Glucose 110 H 74-106 mg/dL Calcium Level 10.1 8.7-10.4 mg/dL Total Bilirubin 1.1 H 0.2-1.0 mg/dL Aspartate Amino Transferase (AST) 14 13-40 U/L Alanine Aminotransferase (ALT) 13 7-40 U/L Alkaline Phosphatase 106 46-116 U/L Total Protein 7.4 5.7-8.2 g/dL Albumin 4.2 3.2-4.8 g/dL Lipase 24 12-53 U/L Assessment/Plan Assessment/Plan Hypoxemia Bilateral pulmonary infiltrates. Pneumonia DM Hypertension Chronic pain disorder Hx PE Hx CA Hx psych disorders Plan Admit telemetry Pulmonology consult. Bronchodilators. Supplemental O2 to maintain O2 saturation greater than 93%. IV ABX. Blood glucose checks ACHS with regular insulin sliding scale coverage for optimal glycemic management. Continue home medication after reconciliation completed. As needed anti-hypertensive for optimal BP management. As needed analgesia. Physical therapy evaluation Social service consult for home safety evaluation GI ppx protonix / DVT PPX Lovenox Plan discussed with: Patient My Orders Orders - CHERYL GILLILAND NP Procedure Category Date Status Time Admit ADMIT 06/16/24 Transmitted 22:17 Code Status CODE 06/16/24 Transmitted 22:17 Vital Signs [facility] 06/16/24 In Process 22:17 Review Orders With CEFERINO 06/16/24 In Process Adm. 22:17 Encourage Activity As CEFERINO 06/16/24 In Process Tolerate 22:17 Consistent DIET 06/17/24 Transmitted Carb(Ccho)Diabetes Breakfast Oxygen By Face Mask RT 06/16/24 Transmitted 22:17 Lorazepam Tablet PHA 06/16/24 In Process (Ativan Tablet) 22:30 Docusate Sodium PHA 06/16/24 In Process Capsule (Colace 22:30 Acetaminophen Tablet PHA 06/16/24 In Process (Tylenol Tablet) 22:30 Notify Of Changes CEFERINO 06/16/24 In Process From Base 22:17 Advance Directive CEFERINO 06/16/24 In Process 22:17 Basic Metabolic Panel LAB 06/17/24 Logged 05:00 Basic Metabolic Panel LAB 06/18/24 Verified 05:00 Basic Metabolic Panel LAB 06/19/24 Verified 05:00 Basic Metabolic Panel LAB 06/20/24 Verified 05:00 Complete Blood Count LAB 06/17/24 Logged 05:00 Complete Blood Count LAB 06/18/24 Verified 05:00 Complete Blood Count LAB 06/19/24 Verified 05:00 Complete Blood Count LAB 06/20/24 Verified 05:00 Blood Culture CESIA 06/16/24 In Process 22:17 Patient Condition ORDERS 06/16/24 Transmitted 22:17 Allergies CEFERINO 06/16/24 In Process 22:17 Hydrocodone-Acet PHA 06/16/24 In Process 5/325mg Tab ([place] 22:30 Ondansetron Hcl PHA 06/16/24 In Process (Zofran) 22:30 Morphine Sulfate PHA 06/16/24 In Process Injection 22:30 Enoxaparin Sodium PHA 06/17/24 Pending (Lovenox) 10:00 Sequential CEFERINO 06/16/24 In Process Compression Device Nitroglycerin PHA 06/16/24 In Process Sublingual (Ntrostat 22:30 Morphine Sulfate PHA 06/16/24 In Process Injection 22:30 Stat Ekg For Chest CEFERINO 06/16/24 In Process Pain 22:17 Notify Of Changes CEFERINO 06/16/24 In Process From Base 22:17 Tap And Die Maker Technician For [facility] 06/16/24 In Process 24 Hours 22:17 Emergency Dysrhythmia CEFERINO 06/16/24 In Process Protocol 22:17 Rhythm Strips Once CEFERINO 06/16/24 In Process Every Shift 22:17 Oxygen By Nasal RT 06/16/24 Transmitted Cannula 22:17 Glucose Blood PHA 06/17/24 In Process (Accu-Chek Comfort 07:00 Insulin R (Human) PHA 06/17/24 In Process (Insulin R) 07:00 Dextrose 50% Syringe PHA 06/16/24 In Process 22:30 Communication Order ORDERS 06/16/24 Transmitted 22:17 Ceftriaxone 1gm/50ml PHA 06/17/24 In Process D5w (Rocephin) 09:00 Azithromycin 500mg/ PHA 06/17/24 In Process 250ml (Zithromax 50 10:00 Pantoprazole PHA 06/17/24 Logged (Protonix) 10:00 Date of Service: Jun 17, 2024 Billing Provider: LANDON BROWNE MD Common Visit Codes: NOT BILLABLE LANDON BROWNE MD 06/17/24 1614: Review of Systems Allergies: Coded Allergies: NO KNOWN ALLERGIES (Unverified , 11/03/20) Additional Comments Additional Comments Additional Comments 74-year-old female with known history of congestive heart failure, hypertension, diabetes mellitus type 2, dyslipidemia, anxiety/depression disorder, schizophrenia initially presented to the hospital nausea vomiting found to have 1. Bilateral pulmonary infiltrates possibly pneumonia 2. Leukocytosis 3. Diabetes mellitus type 2 next 4. Hypertension 5. Chronic pain syndrome 6. Anxiety/depression/schizophrenia -patient requesting to resume her Prozac and Seroquel home doses which has been resumed -continue IV antibiotics, follow up Pulmonary recommendations -preop evaluation and treatment. CHERYL GILLILAND NP Jun 17, 2024 02:47 LANDON BROWNE MD Jun 17, 2024 16:14
[2024-06-17] MEDS: ACCU-CHEK COMFORT CURVE STRIP VI SCH (06:55)
[2024-06-17] MEDS: InsuLIN REG 1unit/0.01ml Soln (100units/ml) SC SCH (06:56)
[2024-06-17 07:13] LABS: Basophils # (auto) 0 10 ^3/uL (0-0.2); Eosinophils # (auto) 0.3 10 ^3/uL (0-0.8)
[2024-06-17 07:17] LABS: Basophils % (auto) 0.3 % (0.0-2.0); Eosinophils % (auto) 2.1 % (0.0-7.0); Hematocrit 32.2 % (36.0-46.0); Hemoglobin 10.2 g/dL (12.2-16.2); Lymphocytes # (auto) 1.7 10 ^3/uL (0.4-5.4); Mean Corpuscular Hemoglobin 25.6 pg (28.0-32.0); Mean Corpuscular Hgb Conc. 31.7 g/dL (32.0-36.0); Mean Corpuscular Volume 80.8 fL (80.0-100.0); Monocytes # (auto) 0.8 10 ^3/uL (0-1.3); Monocytes % (auto) 5.4 % (0.0-12.0); Neutrophils # (auto) 12.8 10 ^3/uL (1.6-8.6); Neutrophils % (auto) 81.2 % (37.0-80.0); Platelet Count (auto) 200 10^3/uL (140-450); Red Blood Cells 3.98 10^6/uL (4.0-5.20); Red Cell Distribution Width 16.1 % (11.8-14.3); White Blood Cell 15.7 10^3/uL (4.4-10.8)
[2024-06-17 07:37] LABS: Anion Gap 8 (5-15); Calcium 9.4 mg/dL (8.7-10.4); Carbon Dioxide 24 mmol/L (20-31); Chloride 108 mmol/L (98-107); Potassium 3.4 mmol/L (3.5-5.1); Sodium 140 mmol/L (136-145)
[2024-06-17 07:43] LABS: BUN/Creatinine Ratio 12.5 (10.0-20.0); Blood Urea Nitrogen 14 mg/dL (9-23); Glucose 111 mg/dL (74-106)
[2024-06-17] MEDS: ONDANSETRON HCL 4 MG/2 ML VIAL IV PRN (08:39)
[2024-06-17] MEDS: cefTRIAXone 1GM/50ML D5W 50 ML IV SCH (08:40)
[2024-06-17] MEDS: PANTOPRAZOLE 40 MG/10 ML VIAL INJ IV SCH (10:26)
[2024-06-17] MEDS: AZITHROMYCIN 500MG/ 250ML 250 ML IV SCH (10:26)
[2024-06-17] MEDS: ENOXAPARIN SOD 40 MG/0.4 ML SYRINGE SC SCH (10:26)
[2024-06-17] MEDS: LORazepam 0.5 MG TAB PO PRN (15:23)
[2024-06-17] MEDS: FLUoxetine HCL 20 MG CAP PO SCH (17:07)
[2024-06-17] MEDS: QUEtiapine FUMARATE 100 MG TAB PO SCH (21:57)
[2024-06-17] MEDS: MORPHINE SULFATE INJ 2 MG/ml SYRG IV PRN (22:11)
[2024-06-18 03:58] LABS: Eosinophils # (auto) 0.5 10 ^3/uL (0-0.8); Hemoglobin 9.6 g/dL (12.2-16.2); Mean Corpuscular Hgb Conc. 32.5 g/dL (32.0-36.0); Monocytes # (auto) 0.6 10 ^3/uL (0-1.3)
[2024-06-18 04:00] LABS: Basophils # (auto) 0.1 10 ^3/uL (0-0.2); Basophils % (auto) 0.7 % (0.0-2.0); Eosinophils % (auto) 4.8 % (0.0-7.0); Hematocrit 29.6 % (36.0-46.0); Lymphocytes # (auto) 1.7 10 ^3/uL (0.4-5.4); Lymphocytes % (auto) 16.4 % (10.0-50.0); Mean Corpuscular Hemoglobin 26.2 pg (28.0-32.0); Mean Corpuscular Volume 80.6 fL (80.0-100.0); Monocytes % (auto) 5.8 % (0.0-12.0); Neutrophils # (auto) 7.4 10 ^3/uL (1.6-8.6); Neutrophils % (auto) 72.3 % (37.0-80.0); Platelet Count (auto) 188 10^3/uL (140-450); Red Blood Cells 3.67 10^6/uL (4.0-5.20); White Blood Cell 10.2 10^3/uL (4.4-10.8)
[2024-06-18 04:07] LABS: Chloride 108 mmol/L (98-107); Potassium 3.7 mmol/L (3.5-5.1); Sodium 139 mmol/L (136-145)
[2024-06-18 04:08] LABS: Anion Gap 7 (5-15); Calcium 9.5 mg/dL (8.7-10.4); Carbon Dioxide 24 mmol/L (20-31)
[2024-06-18 04:13] LABS: BUN/Creatinine Ratio 10.3 (10.0-20.0); Blood Urea Nitrogen 10 mg/dL (9-23); Glucose 83 mg/dL (74-106)
[2024-06-18 08:15] VITALS: PULSE 75
[2024-06-18 08:50] VITALS: BP 139/71; PULSE 86; RESP 17; TEMP 98.2; O2SAT 95
[2024-06-18 13:00] VITALS: BP 121/73; PULSE 86; RESP 17; TEMP 98.4; O2SAT 91
--- NOTE | 2024-06-18 16:31 | DVHPN2 ---
Subjective Overnight events noted. Patient was feeling much better. Reviewed: Care Plan Changes from previous H/P or p: No Changes Eyes: No Pain, No Vision change, No Conjunctivae inflammation, No Eyelid inflammation, No Other, No Redness ENT: No Ear pain, No Ear discharge, No Nose pain, No Nose discharge, No Nose congestion, No Mouth pain, No Mouth swelling, No Throat pain, No Throat swelling, No Other Cardiovascular: No Chest Pain, No Palpitations, No Orthopnea, No Paroxysmal Noc. Dyspnea, No Edema, No Lt Headedness, No Other Respiratory: No Cough, No Dry, No Shortness of breath, No SOB with excertion, No Wheezing, No Hemoptysis, No Pleuritic Pain, No Sputum, No Other Gastrointestinal: Nausea, Vomiting; No Abdominal Pain, No Diarrhea, No Constipation, No Melena, No Hematochezia, No Other Genitourinary: No Dysuria, No Frequency, No Incontinence, No Hematuria, No Retention, No Other Musculoskeletal: No other, No neck pain, No shoulder pain, No arm pain, No back pain, No hand pain; leg pain; No foot pain Skin: No Rash, No Lesions, No Jaundice, No Bruising, No Other Objective Vitals Vital Signs Date Time Temp Pulse Resp B/P (MAP) Pulse Ox O2 Delivery O2 Flow Rate FiO2 06/18/24 15:58 94 20 130/68 06/18/24 13:00 98.4 91 98.4 06/18/24 08:15 Nasal Cannula* 3 32 Intake/Output Intake and Output 06/18/24 07:00 Intake Total 1475 ml Balance 1475 ml Intake Oral 1175 ml IV Total 300 ml # Voids 5 # Bowel Movements 1 Exam HEENT pupils are reactive Neck is supple CV is S1-S2 regular rate and rhythm Has been diminished breath sound bases GI posterior bowel sound Extremity no edema TRAPPER ANIMAL no motor deficit Medications Current Medications Medications Dose Ordered Sig/Shala Route Start Time Stop Time Status Last Admin Dose Admin Lorazepam 0.5 mg BIDP PRN PO 06/16/24 22:30 06/17/24 15:23 0.5 MG Docusate Sodium 100 mg BIDPRN PRN PO 06/16/24 22:30 Acetaminophen 650 mg Q6HP PRN PO 06/16/24 22:30 Acetaminophen/ Hydrocodone Bitart 1 tab Q6HP PRN PO 06/16/24 22:30 06/17/24 18:50 1 TAB Ondansetron HCl 4 mg Q4HP PRN IV 06/16/24 22:30 06/17/24 08:39 4 MG Morphine Sulfate 2 mg Q4HPRN PRN IV 06/16/24 22:30 06/18/24 15:58 2 MG Enoxaparin Sodium 40 mg DAILY SC 06/17/24 10:00 06/17/24 10:26 40 MG Nitroglycerin 0.4 mg Q5MINP PRN SL 06/16/24 22:30 Morphine Sulfate 2 mg Q30M PRN IV 06/16/24 22:30 Diagnostic Test (Pha) 1 strip ACHS 06/17/24 07:00 06/18/24 11:30 1 STRIP Insulin Human Regular ACHS SC 06/17/24 07:00 Dextrose 50 ml UD PRN IV 06/16/24 22:30 Ceftriaxone Sodium 50 ml @ 100 mls/hr DAILY@09 IV 06/17/24 09:00 06/18/24 09:41 100 MLS/HR Azithromycin 250 ml @ 125 mls/hr DAILY IV 06/17/24 10:00 06/18/24 09:56 125 MLS/HR Pantoprazole Sodium 40 mg DAILY IV 06/17/24 10:00 06/18/24 09:41 40 MG Fluoxetine HCl 60 mg DAILY PO 06/17/24 16:15 06/18/24 09:42 60 MG Quetiapine Fumarate 100 mg HS PO 06/17/24 22:00 06/17/24 21:57 100 MG Laboratory Results Laboratory Tests 06/18/24 03:40 Chemistry Test 06/18/24 03:40 Calcium Level 9.5 mg/dL (8.7-10.4) Urinalysis Test 06/16/24 21:20 Urine Color Yellow (Yellow) Urine Clarity Clear (Clear) Urine pH 7.0 (5.0-9.0) Urine Specific [place] 1.017 (1.001-1.035) Urine Protein Trace (Negative) H Urine Ketones Trace (Negative) Urine Blood Negative /uL (Negative) Urine Nitrite Negative (Negative) Urine Bilirubin Negative (Negative) Urine Urobilinogen Normal mg/dL (Negative) Urine Leukocyte Esterase Negative /uL (Negative) Urine RBC 1 /hpf (0 - 4) Urine WBC 3 /hpf (0 - 5) Urine Squamous Epithelial Cells Few /hpf (<5) Urine Bacteria None seen /hpf (None Seen) Urine Glucose Normal mg/dL (Normal) Microbiology Microbiology Date/Time Source Procedure Growth Status 06/16/24 23:20 Blood Blood Culture - Preliminary NO GROWTH AFTER 24 HOURS OF INCUBATION. Resulted Assessment/Plan Assessment/Plan 74-year-old female with known history of congestive heart failure, hypertension, diabetes mellitus type 2, dyslipidemia, anxiety/depression disorder, schizophrenia initially presented to the hospital nausea vomiting found to have 1. Bilateral pulmonary infiltrates possibly pneumonia 2. Leukocytosis 3. Diabetes mellitus type 2 next 4. Hypertension 5. Chronic pain syndrome 6. Anxiety/depression/schizophrenia -continue antibiotics, physical therapy evaluation treatment, discharge plan Plan discussed with: Patient My Orders Orders - LANDON BROWNE MD Procedure Category Date Status Time Cleanse Wound With CEFERINO 06/18/24 In Process Mild Soap A 11:34 * Dietary Consult CONS 06/18/24 Transmitted 14:00 Date of Service: Jun 18, 2024 Billing Provider: LANDON BROWNE MD Common Visit Codes: NOT BILLABLE LANDON BROWNE MD Jun 18, 2024 16:31
[2024-06-18 17:00] VITALS: BP 123/62; PULSE 85; RESP 18; TEMP 99.9; O2SAT 95
[2024-06-18 20:00] VITALS: PULSE 92; RESP 18; O2SAT 93
[2024-06-18 21:00] VITALS: BP 116/57; PULSE 94; RESP 22; TEMP 99.4; O2SAT 93
[2024-06-19 00:54] VITALS: BP 115/57; PULSE 87; RESP 18; TEMP 98.1; O2SAT 96
[2024-06-19 05:00] VITALS: BP 114/65; PULSE 80; RESP 18; TEMP 98.1; O2SAT 96
[2024-06-19 06:09] LABS: Basophils # (auto) 0 10 ^3/uL (0-0.2); Basophils % (auto) 0.5 % (0.0-2.0); Eosinophils # (auto) 0.4 10 ^3/uL (0-0.8); Eosinophils % (auto) 4.9 % (0.0-7.0); Hematocrit 28.7 % (36.0-46.0); Hemoglobin 8.9 g/dL (12.2-16.2); Lymphocytes # (auto) 1.3 10 ^3/uL (0.4-5.4); Lymphocytes % (auto) 16.9 % (10.0-50.0); Mean Corpuscular Hemoglobin 25.5 pg (28.0-32.0); Mean Corpuscular Hgb Conc. 31.1 g/dL (32.0-36.0); Mean Corpuscular Volume 82.2 fL (80.0-100.0); Monocytes # (auto) 0.7 10 ^3/uL (0-1.3); Monocytes % (auto) 9.4 % (0.0-12.0); Neutrophils # (auto) 5.4 10 ^3/uL (1.6-8.6); Neutrophils % (auto) 68.3 % (37.0-80.0); Platelet Count (auto) 188 10^3/uL (140-450); Red Blood Cells 3.49 10^6/uL (4.0-5.20); Red Cell Distribution Width 16.3 % (11.8-14.3); White Blood Cell 7.9 10^3/uL (4.4-10.8)
[2024-06-19 06:16] LABS: Chloride 108 mmol/L (98-107); Potassium 3.4 mmol/L (3.5-5.1); Sodium 140 mmol/L (136-145)
[2024-06-19 06:17] LABS: Anion Gap 6 (5-15); Calcium 9.3 mg/dL (8.7-10.4); Carbon Dioxide 26 mmol/L (20-31)
[2024-06-19 06:22] LABS: BUN/Creatinine Ratio 11.4 (10.0-20.0); Blood Urea Nitrogen 10 mg/dL (9-23); Glucose 81 mg/dL (74-106)
[2024-06-19 08:15] VITALS: PULSE 70
[2024-06-19 09:00] VITALS: BP 130/64; PULSE 81; RESP 19; TEMP 98.5; O2SAT 95
[2024-06-19 12:33] VITALS: BP 140/71; PULSE 87; RESP 19; TEMP 97.9; O2SAT 90
[2024-06-19 16:46] VITALS: BP 121/79; PULSE 89; RESP 17; TEMP 98.4; O2SAT 90
[2024-06-19] MEDS ORDERED: CEPH500C PO (17:03)
[2024-06-19] MEDS ORDERED: AZIT500T66 PO (17:03)
--- NOTE | 2024-06-19 19:25 | DVHDS2 ---
Discharge Summary Date of Admission Jun 16, 2024 at 22:17 Date of Discharge: Jun 19, 2024 Labs/Diagnostic Data: Laboratory Results Test 06/19/24 17:37 06/19/24 04:39 06/17/24 03:20 06/16/24 21:20 POC Glucose 80 mg/dl (70-106) White Blood Count 7.9 10^3/uL (4.4-10.8) Red Blood Count 3.49 10^6/uL (4.0-5.20) Hemoglobin 8.9 g/dL (12.2-16.2) Hematocrit 28.7 % (36.0-46.0) Mean Corpuscular Volume 82.2 fL (80.0-100.0) Mean Corpuscular Hemoglobin 25.5 pg (28.0-32.0) Mean Corpuscular Hemoglobin Concent 31.1 g/dL (32.0-36.0) Red Cell Distribution Width 16.3 % (11.8-14.3) Platelet Count 188 10^3/uL (140-450) Mean Platelet Volume 10.5 fL (6.9-10.8) Neutrophils (%) (Auto) 68.3 % (37.0-80.0) Lymphocytes (%) (Auto) 16.9 % (10.0-50.0) Monocytes (%) (Auto) 9.4 % (0.0-12.0) Eosinophils (%) (Auto) 4.9 % (0.0-7.0) Basophils (%) (Auto) 0.5 % (0.0-2.0) Neutrophils # (Auto) 5.4 10 ^3/uL (1.6-8.6) Lymphocytes # (Auto) 1.3 10 ^3/uL (0.4-5.4) Monocytes # (Auto) 0.7 10 ^3/uL (0-1.3) Eosinophils # (Auto) 0.4 10 ^3/uL (0-0.8) Basophils # (Auto) 0 10 ^3/uL (0-0.2) Nucleated Red Blood Cells 0.0 % Sodium Level 140 mmol/L (136-145) Potassium Level 3.4 mmol/L (3.5-5.1) Chloride Level 108 mmol/L (98-107) Carbon Dioxide Level 26 mmol/L (20-31) Anion Gap 6 (5-15) Blood Urea Nitrogen 10 mg/dL (9-23) Creatinine 0.88 mg/dL (0.550-1.02) Glomerular Filtration Rate Calc 70 mL/min (>90) BUN/Creatinine Ratio 11.4 (10.0-20.0) Serum Glucose 81 mg/dL (74-106) Calcium Level 9.3 mg/dL (8.7-10.4) Troponin I High Sensitivity 6 ng/L (</=34) Urine Color Yellow (Yellow) Urine Clarity Clear (Clear) Urine pH 7.0 (5.0-9.0) Urine Specific [place] 1.017 (1.001-1.035) Urine Protein Trace (Negative) Urine Ketones Trace (Negative) Urine Blood Negative /uL (Negative) Urine Nitrite Negative (Negative) Urine Bilirubin Negative (Negative) Urine Urobilinogen Normal mg/dL (Negative) Urine Leukocyte Esterase Negative /uL (Negative) Urine RBC 1 /hpf (0 - 4) Urine WBC 3 /hpf (0 - 5) Urine Squamous Epithelial Cells Few /hpf (<5) Urine Bacteria None seen /hpf (None Seen) Urine Glucose Normal mg/dL (Normal) Test 06/16/24 20:49 06/16/24 20:00 06/16/24 15:59 Lactic Acid Level 1.6 mmol/L (0.4-2.0) Influenza Type A Antigen Negative (Negative) Influenza Type B Antigen Negative (Negative) SARS-CoV-2 Antigen (Rapid) Negative (NEGATIVE) Total Bilirubin 1.1 mg/dL (0.2-1.0) Aspartate Amino Transferase (AST) 14 U/L (13-40) Alanine Aminotransferase (ALT) 13 U/L (7-40) Alkaline Phosphatase 106 U/L (46-116) Total Protein 7.4 g/dL (5.7-8.2) Albumin 4.2 g/dL (3.2-4.8) Lipase 24 U/L (12-53) Other Laboratory Tests 06/19/24 04:39 Brief Hx & Hospital Course: 74-year-old female with known history of congestive heart failure, hypertension, diabetes mellitus type 2, dyslipidemia, anxiety/depression disorder, schizophrenia initially presented to the hospital nausea vomiting found to have bilateral pulmonary consolidation as well as leukocytosis. Patient was started on IV antibiotics. Patient antibiotic was made to be switched to p.o. antibiotics upon discharge. Patient is being discharged in a stable condition. Condition at Discharge: Stable Final Diagnosis/Problems List 74-year-old female with known history of congestive heart failure, hypertension, diabetes mellitus type 2, dyslipidemia, anxiety/depression disorder, schizophrenia initially presented to the hospital nausea vomiting found to have 1. Bilateral pulmonary infiltrates possibly pneumonia 2. Leukocytosis 3. Diabetes mellitus type 2 next 4. Hypertension 5. Chronic pain syndrome 6. Anxiety/depression/schizophrenia Discharge Disposition: Home with Health Services SNF Discharge Will this Physician continue t: No Discharge Instruct/Medications Diet: Cardiac 2g Na,low cholest Diet comment: Two thousand ADA diet Activity: No Restrictions, As Tolerated Follow Up/Referral: Please follow up with the PCP in 1-2 weeks Repeat chest x-ray in one month to make sure resolution of the pneumonia. Medications: Keflex, azithromycin as prescribed Discharge Statement: "Patient was advised to return to the ER or call 911 if any headaches, dizziness, shortness of breath, chest pain, abdominal pain, bleeding, fevers, or worsening of medical condition. Patient was counseled about treatment plan, medications, possible side effects, patientverbalized understanding. All questions were answered to the best of my ability. This discharge took greater then 30 minutes in planning, reviewing documentation, counseling the patient, and discussing with other team members." ASSESSMENT ASSESSMENT Assessment 74-year-old female with known history of congestive heart failure, hypertension, diabetes mellitus type 2, dyslipidemia, anxiety/depression disorder, schizophrenia initially presented to the hospital nausea vomiting found to have 1. Bilateral pulmonary infiltrates possibly pneumonia 2. Leukocytosis 3. Diabetes mellitus type 2 next 4. Hypertension 5. Chronic pain syndrome 6. Anxiety/depression/schizophrenia Date of Service: Jun 19, 2024 Billing Provider: LANDON BROWNE MD Common Visit Codes: NOT BILLABLE LANDON BROWNE MD Jun 19, 2024 19:25
--- NOTE | 2024-06-20 11:33 | DVHINCON2 ---
Date of service: Jun 19, [address] Browne Reason for Consultation dc antibiotic recs History of Present Illness Patient is a 74-year-old female presents to the hospital for the complaint of nausea and vomiting for the past 1 day. She denies any fevers, chills, cough, congestion, chest pain, dizziness or palpitations. Patient also endorses chronic Left lower extremity sciatic nerve pain, being seen by pain management outpatient. Patient denies consistent use of home oxygen. However while in the emergency department is found to require supplemental O2 2LNC to maintain oxygen saturation in 94%. Well in the emergency department CBC: W18.9, Otherwise unremarkable. Chest x-ray positive for bilateral infiltrates. Dr Browne consulted for possible pneumonia Past Medical History Patient's past medical history is significant for CHF, DM, hypertension, hyperlipidemia, cancer, pulmonary embolus, depression, anxiety, schizophrenia, chronic pain disorder Family History: Cardiovascular disease G8 FATHER Social History Smoke: No ALCOHOL: none Drugs: None Lives: with Family Allergies: Coded Allergies: NO KNOWN ALLERGIES (Unverified , 11/03/20) Home Meds Active Scripts Azithromycin (Azithromycin) 500 Mg Tab, 1 TAB PO DAILY for 5 Days, #5 TAB Prov:LANDON BROWNE MD 06/19/24 Cephalexin Monohydrate (Cephalexin) 500 Mg Cap, 1 CAP PO QID for 7 Days, #40 CAP Prov:LANDON BROWNE MD 06/19/24 Reported Medications Omeprazole (Gnp Omeprazole) 20 Mg Tab, 40 MG PO, TAB 02/18/21 Multiple Vitamins W/ Minerals (ALIVE WOMENS 50+) Womens Tab, 1 TAB PO, TAB 02/18/21 Fluticasone Propionate (FLOVENT HFA 110Mcg INH) 110 Mcg Ih, 50 MCG IN BID, INH 02/18/21 Losartan Potassium (Losartan Potassium) 50 Mg Tab, 50 MG PO DAILY for 30 Days, MG 11/03/20 Loperamide Hcl (Loperamide Hcl) 2 Mg Cap, 2 MG PO PRN, MG 05/02/20 Gabapentin (Gabapentin) 600 Mg Tab, 600 MG PO BID for 30 Days, MG 05/02/20 Nifedipine (Nifedipine Er) 30 Mg Tab, 1 TAB PO DAILY, #90 TAB 1 Refill 05/02/20 Atorvastatin Calcium (ATORVASTATIN CALCIUM) 20 Mg Tab, 1 TAB PO DAILY, #30 TAB 5 Refills 05/02/20 Oxybutynin Chloride (Oxybutynin Chloride) 5 Mg Tab, 5 MG PO DAILY, TAB 05/02/20 Levothyroxine Sodium (Levothyroxine Sodium) 25 Mcg Tab, 25 MCG PO QAM, MCG 05/02/20 Fluoxetine Hcl (Fluoxetine Hcl) 20 Mg Cap, 60 MG PO DAILY for 30 Days, MG 05/02/20 Quetiapine Fumerate (QUETIAPINE FUMARATE) 100 Mg Tab, 100 MG PO HS for 30 Days, MG 05/02/20 Metformin Hydrochloride (Metformin Hcl) 500 Mg Tab, 500 MG PO DAILY for 30 Days, MG 05/02/20 Review of Systems Constitutional: No: Fever, Chills, Sweats, Weakness, Malaise, Other Eyes: No: Pain, Vision change, Conjunctivae inflammation, Eyelid inflammation, Other, Redness ENT: No: Ear pain, Ear discharge, Nose pain, Nose discharge, Nose congestion, Mouth pain, Mouth swelling, Throat pain, Throat swelling, Other Respiratory: No: Cough, Dry, Shortness of breath, SOB with excertion, Wheezing, Hemoptysis, Pleuritic Pain, Sputum, Wheezing, Other Cardiovascular: No: Chest Pain, Palpitations, Orthopnea, Paroxysmal Noc. Dyspnea, Edema, Lt Headedness, Other Gastrointestinal: Nausea, Vomiting; No: Abdominal Pain, Diarrhea, Constipation, Melena, Hematochezia, Other Genitourinary: No Dysuria, No Frequency, No Incontinence, No Hematuria, No Retention, No Other Musculoskeletal: leg pain; No: other, neck pain, shoulder pain, arm pain, back pain, hand pain, foot pain Skin: No: Rash, Lesions, Jaundice, Bruising, Other Neurological: No: Weakness, Numbness, Incoordination, Change in speech, Confusion, Seizures, Other Vital Signs Vital Signs Date Time Temp Pulse Resp B/P (MAP) Pulse Ox O2 Delivery O2 Flow Rate FiO2 06/19/24 15:41 87 19 140/71 06/19/24 12:33 97.9 90 97.9 06/19/24 08:15 Nasal Cannula* 3 32 Physical Exam General Appearance: Alert, Oriented X3, Cooperative, No acute distress HEENT: Atraumatic, PERRLA, EOMI Respiratory: Clear to auscultation, Normal air movement Cardiovascular: Regular rate, Normal S1, Normal S2 Abdominal: Normal bowel sounds, Soft, No tenderness Extremities: No clubbing, No cyanosis, No edema Skin: No rashes, No breakdown Neuro: Normal gait, Normal speech Psych/Mental Status: Mental status NL, Mood NL Labs/Diagnostic Data Labs Test 06/19/24 11:16 06/19/24 04:39 06/17/24 03:20 06/16/24 21:20 Range/Units POC Glucose 76 70-106 mg/dl White Blood Count 7.9 4.4-10.8 10^3/uL Red Blood Count 3.49 L 4.0-5.20 10^6/uL Hemoglobin 8.9 L 12.2-16.2 g/dL Hematocrit 28.7 L 36.0-46.0 % Mean Corpuscular Volume 82.2 80.0-100.0 fL Mean Corpuscular Hemoglobin 25.5 L 28.0-32.0 pg Mean Corpuscular Hemoglobin Concent 31.1 L 32.0-36.0 g/dL Red Cell Distribution Width 16.3 H 11.8-14.3 % Platelet Count 188 140-450 10^3/uL Mean Platelet Volume 10.5 6.9-10.8 fL Neutrophils (%) (Auto) 68.3 37.0-80.0 % Lymphocytes (%) (Auto) 16.9 10.0-50.0 % Monocytes (%) (Auto) 9.4 0.0-12.0 % Eosinophils (%) (Auto) 4.9 0.0-7.0 % Basophils (%) (Auto) 0.5 0.0-2.0 % Neutrophils # (Auto) 5.4 1.6-8.6 10 ^3/uL Lymphocytes # (Auto) 1.3 0.4-5.4 10 ^3/uL Monocytes # (Auto) 0.7 0-1.3 10 ^3/uL Eosinophils # (Auto) 0.4 0-0.8 10 ^3/uL Basophils # (Auto) 0 0-0.2 10 ^3/uL Nucleated Red Blood Cells 0.0 % Sodium Level 140 136-145 mmol/L Potassium Level 3.4 L 3.5-5.1 mmol/L Chloride Level 108 H 98-107 mmol/L Carbon Dioxide Level 26 20-31 mmol/L Anion Gap 6 5-15 Blood Urea Nitrogen 10 9-23 mg/dL Creatinine 0.88 0.550-1.02 mg/dL Glomerular Filtration Rate Calc 70 >90 mL/min BUN/Creatinine Ratio 11.4 10.0-20.0 Serum Glucose 81 74-106 mg/dL Calcium Level 9.3 8.7-10.4 mg/dL Troponin I High Sensitivity 6 </=34 ng/L Urine Color Yellow Yellow Urine Clarity Clear Clear Urine pH 7.0 5.0-9.0 Urine Specific [place] 1.017 1.001-1.035 Urine Protein Trace H Negative Urine Ketones Trace Negative Urine Blood Negative Negative /uL Urine Nitrite Negative Negative Urine Bilirubin Negative Negative Urine Urobilinogen Normal Negative mg/dL Urine Leukocyte Esterase Negative Negative /uL Urine RBC 1 0 - 4 /hpf Urine WBC 3 0 - 5 /hpf Urine Squamous Epithelial Cells Few <5 /hpf Urine Bacteria None seen None Seen /hpf Urine Glucose Normal Normal mg/dL Test 06/16/24 20:49 06/16/24 20:00 06/16/24 15:59 Range/Units Lactic Acid Level 1.6 0.4-2.0 mmol/L Influenza Type A Antigen Negative Negative Influenza Type B Antigen Negative Negative SARS-CoV-2 Antigen (Rapid) Negative NEGATIVE Total Bilirubin 1.1 H 0.2-1.0 mg/dL Aspartate Amino Transferase (AST) 14 13-40 U/L Alanine Aminotransferase (ALT) 13 7-40 U/L Alkaline Phosphatase 106 46-116 U/L Total Protein 7.4 5.7-8.2 g/dL Albumin 4.2 3.2-4.8 g/dL Lipase 24 12-53 U/L Microbiology Date/Time Source Procedure Growth Status 06/16/24 23:20 Blood Blood Culture - Preliminary NO GROWTH AFTER 48 HOURS OF INCUBATION. Resulted Assessment Patient is a 67-year-old female presented to the hospital with: Hypoxemia Bilateral pulmonary infiltrates.: Bronchitis bronchiectasis DM Chronic pain disorder Hx PE Hx CA Hx psych disorders Recommendations: 06/16: Blood culture revealed no growth. 06/16: Chest x-ray revealed: Bilateral perihilar infiltrates with interstitial fully infiltrate in the right upper lobe and left lower lobe. 06/16: CT Abdomen/Pelvis revealed: 1. Gallbladder is been surgically removed. 2. Punctate nonobstructing left renal calculus 3. Small bilateral renal cysts 4. Bony spondylosis and degenerative disc changes from L3 through S1. reviewed culture, reviewed CT abdomen. lung showed bronchiectasis ok to taper to oral cefdinir 300mg BID for 3-5 days Thank you for consult. Plan discussed with: KOBE Pierce MD Jun 19, 2024 16:24
== END 2024-06-19 20:46 | disposition home health service (06) | DRG 871 ==
LOC: EDBD 13:50 → ER 13:50 → TELE 22:17 → TELE-WESTW 22:25
PROVIDERS: ADMIT Nurse Practitioner Family; ATTEND Internal Medicine
PROC: 05HF33Z Insertion of Infusion Device into Left Cephalic Vein, Percutaneous Approach (ICD-10-PCS; principal; 2024-06-18)
PROC: B54NZZA Ultrasonography of Left Upper Extremity Veins, Guidance (ICD-10-PCS; 2024-06-18)
DX: A41.9 Sepsis, unspecified organism (principal); J15.69 Pneumonia due to other Gram-negative bacteria; J15.9 Unspecified bacterial pneumonia; J44.0 Chronic obstructive pulmonary disease with (acute) lower respiratory infection; R09.02 Hypoxemia; E11.9 Type 2 diabetes mellitus without complications; F32.A Depression, unspecified; F41.9 Anxiety disorder, unspecified; G89.4 Chronic pain syndrome; F20.9 Schizophrenia, unspecified; E78.5 Hyperlipidemia, unspecified; I11.0 Hypertensive heart disease with heart failure; I50.9 Heart failure, unspecified; Z90.49 Acquired absence of other specified parts of digestive tract; Z90.710 Acquired absence of both cervix and uterus; Z82.49 Family history of ischemic heart disease and other diseases of the circulatory system; Z86.711 Personal history of pulmonary embolism; Z79.899 Other long term (current) drug therapy; Z79.84 Long term (current) use of oral hypoglycemic drugs
CPT/HCPCS: 36415; 71046; 74176; 80048; 80053; 81001; 82962; 83605; 83690; 84484; 85025; 87040; 87426; 87804; 96361; 96365; 96375; G0378; J2405; J2470